=== PATIENT | male | born 1995 | race African-American/Black ===

== ENCOUNTER 2017-10-24 02:16 | Emergency (ER) | payer MEDICAID ==
[~2017-10-24] VITALS: Ht 177.8 cm; Wt 97.0 kg
[2017-10-24] MEDS ORDERED: ACETAMINOPHEN WITH CODEINE 300/30MG TABLET PO ONE (04:00)
[2017-10-24 04:05] VITALS: BP 144/74
== END 2017-10-24 04:55 | disposition home or self-care (01) ==
LOC: ER 02:47
DX: R51 Headache (principal)
CPT/HCPCS: 99282